=== PATIENT | male | born 1995 ===

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

== ENCOUNTER 2017-01-20 10:57 | Emergency (ER) | payer OTHER ==
[2017-01-20 11:19] VITALS: BP 131/81
--- NOTE | 2017-01-20 11:42 | UC ---
Skin Complaint HPI - HPI Summary HPI Summary: The patient comes in today for: 1. Sore on the left buttocks: Onset: 2 weeks. Palliative/provocative: Pressure makes it hurt more. No pressure helps. Quality: Sore Region: Left buttocks. Severity: 2/10 without touching. 7/10 with touching. Time: Constant. Associated symptoms: Drainage: None. Previous treatment: In the past, he has tried antibiotics. * - History of Current Complaint Chief Complaint: UCSkin Time Seen by Provider: 01/20/17 11:37 Stated Complaint: SOFT TISSUE COMPLAINT Hx Obtained From: Patient - Allergy/Home Medications Allergies/Adverse Reactions: Allergies Allergy/AdvReac Type Severity Reaction Status Date / Time No Known Allergies Allergy Verified 12/09/16 10:58 Review of Systems Constitutional: Negative Skin: Rash Eyes: Negative ENT: Negative Respiratory: Negative Cardiovascular: Negative Gastrointestinal: Negative Genitourinary: Negative All Other Systems Reviewed And Are Negative: Yes PMH/Surg Hx/FS Hx/Imm Hx Previously Healthy: No Endocrine History Of: Denies: Diabetes, Thyroid Disease, Hyperthyroidism, Hypothyroidism, Dyslipidemia Cardiovascular History Of: Denies: Cardiac Disorders, Hypertension, Pacemaker/ICD, Myocardial Infarction , Congestive Heart Failure, Atrial Fibrillation, Deep Vein Thrombosis, Bleeding Disorders Respiratory History Of: Reports: Asthma - as a child Denies: COPD, Bronchitis, Pneumonia, Pulmonary Embolism GI/ History Of: Denies: Gastroesophageal Reflux, Ulcer, Gastrointestinal Bleed, Gall Bladder Disease, Kidney Stones, Diverticulitis, Renal Disease, Urosepsis Neurological History Of: Denies: TIA, CVA, Dementia, Seizures, Migraine Psychological History Of: Denies: Anxiety, Depression, Bipolar Disorder, Schizophrenia, Post Traumatic Stress Disorder Cancer History Of: Denies: Lung Cancer, Colorectal Cancer, Breast Cancer, Prostate Cancer, Cervical Cancer Other History Of: Negative For: HIV, Hepatitis B, Hepatitis C, Anticoagulant Therapy - Surgical History Surgical History: None - Family History Known Family History: Negative: Cardiac Disease, Hypertension, Diabetes - Social History Occupation: Student Alcohol Use: None Substance Use Type: None Smoking Status (MU): Heavy Every Day Tobacco Smoker Type: Cigarettes Amount Used/How Often: 1/2 ppd Have You Smoked in the Last Year: Yes Household Exposure Type: Cigarettes - Immunization History Most Recent Influenza Vaccination: fall 2015 Vaccination Up to Date: Yes Physical Exam Triage Information Reviewed: Yes Appearance: Well-Appearing, No Pain Distress, Well-Nourished Vital Signs: Initial Vital Signs Pulse 64 01/20/17 11:07 Resp 18 01/20/17 11:07 BP 131/81 01/20/17 11:07 Pulse Ox 100 01/20/17 11:07 Vital Signs Reviewed: Yes Eyes: Positive: Conjunctiva Clear. Negative: Discharge ENT: Positive: Hearing grossly normal. Negative: Pharyngeal erythema, Nasal congestion, Nasal drainage, TM bulging, TM dull, TM red, Tonsillar swelling, Tonsillar exudate Dental: Negative: Gross Decay/Caries @, Dental Fracture @ Neck: Positive: Supple, Nontender, No Lymphadenopathy. Negative: Nuchal Rigidity Respiratory: Positive: Chest non-tender, Lungs clear, No respiratory distress, No accessory muscle use. Negative: Crackles, Wheezing Cardiovascular: Positive: RRR, Pulses Normal Abdomen Description: Positive: Nontender, No Organomegaly, Soft. Negative: Distended, Guarding Musculoskeletal: Positive: Strength Intact, ROM Intact, No Edema Neurological: Positive: Alert, Muscle Tone Normal Psychological: Positive: Age Appropriate Behavior, Consolable Skin: Positive: rashes - Left buttocks: There is some redness of the left buttocks, but it is diffuse. Palpation reveals a mass-like sensation about 3 cm in diameter. It was about 1 cm below the surface. There was no fluctuance. There was minimal tenderness to palpation. Course/Dx - Course Course Of Treatment: Patient was told that I suspect he has a cyst that is in the early stages of infection. And at this time I recommended hot compresses, and antibiotics and to be seen again in about 3 eays. - Differential Diagnoses - Skin Complaint Differential Diagnoses: Abscess, Cellulitis - Diagnoses Provider Diagnoses: Cellulitis. early abscess of the left buttocks. Discharge - Discharge Plan Condition: Stable Disposition: HOME Patient Education Materials: Cellulitis (ED), Abscess (ED) Forms: *School Release Referrals: No Primary Care Phys,NOPCP [Primary Care Provider] - 3 Days (Please see your primary care provider after 3 days. If you don't have one, you can come back to see us.)
== END 2017-01-20 12:15 | disposition home or self-care (01) ==
LOC: UCEAST 10:57
DX: L03.317 Cellulitis of buttock (principal); L02.31 Cutaneous abscess of buttock; F17.210 Nicotine dependence, cigarettes, uncomplicated
CPT/HCPCS: 99212; G0463

== ENCOUNTER 2017-03-10 10:41 | Emergency (ER) | payer OTHER ==
[2017-03-10 11:09] VITALS: BP 129/57
--- NOTE | 2017-03-10 12:36 | UC ---
I, Jeff,Triny, scribed for Caity Nunez MD on 03/10/17 at 1224 . Skin Complaint HPI - HPI Summary HPI Summary: This 21 y/o male presents to [facility] for rash and irritation around groin area since 2 days ago. Pt states started following shaving for the first time. No drainage. + pruritic. No abd pain. No nausea, vomiting. Irritation is not located over penis or testicles. Pt admits to shaving the area 2 days ago for the first time. Positive itchiness. Negative fever, chills, n/v, or SOB. Pt denies any PMHx. Nondrinker and nonsmoker. FHx is negative for HTN, DM, and cardiac dz. Pt is a high school student. Med list is reviewed and confirmed with pt. Plan of care involving cool soak, benadryl, and ointment is discussed with pt, and he is agreeable. - History of Current Complaint Chief Complaint: EDRashSkinAbscess Time Seen by Provider: 03/10/17 12:10 Stated Complaint: PERSONAL Hx Obtained From: Patient Onset/Duration: Sudden Onset, Still Present Skin Exposure Onset/Duration: Days Ago - 2 days ago Timing: Constant Location: Other - groin area Aggravating: Nothing Alleviating: Nothing, OTC Meds Associated Signs & Symptoms: Positive: Negative - Allergy/Home Medications Allergies/Adverse Reactions: Allergies Allergy/AdvReac Type Severity Reaction Status Date / Time No Known Allergies Allergy Verified 03/10/17 12:32 Home Medications: Home Medications NK [No Home Medications Reported] 03/10/17 [History Confirmed 03/10/17] Review of Systems Constitutional: Negative Skin: Other - itchiness and irritation over groin area Eyes: Negative ENT: Negative Respiratory: Negative Cardiovascular: Negative Gastrointestinal: Negative Genitourinary: Negative Motor: Negative Neurovascular: Negative Musculoskeletal: Negative Neurological: Negative Psychological: Negative All Other Systems Reviewed And Are Negative: Yes PMH/Surg Hx/FS Hx/Imm Hx Previously Healthy: Yes - Pt denies any PMHx Other History Of: Negative For: HIV, Hepatitis B, Hepatitis C, Anticoagulant Therapy - Surgical History Surgical History: None - Family History Known Family History: Negative: Cardiac Disease, Hypertension, Diabetes - Social History Occupation: Student Alcohol Use: None Substance Use Type: None Smoking Status (MU): Former Smoker Type: Cigarettes Amount Used/How Often: 1/2 ppd Have You Smoked in the Last Year: Yes Household Exposure Type: Cigarettes - Immunization History Most Recent Influenza Vaccination: fall 2015 Vaccination Up to Date: Yes Physical Exam Triage Information Reviewed: Yes Completion Of Physical Exam Limited Due To: Altered Mental Status Appearance: Well-Appearing, No Pain Distress, Well-Nourished Vital Signs: Initial Vital Signs Temp 98 F 03/10/17 11:06 Pulse 68 03/10/17 11:06 Resp 16 03/10/17 11:06 BP 129/57 03/10/17 11:06 Pulse Ox 100 03/10/17 11:06 Vital Signs Reviewed: Yes Eyes: Positive: Conjunctiva Clear ENT Exam: Normal ENT: Positive: Hearing grossly normal Neck: Positive: Supple, Nontender Respiratory: Positive: No respiratory distress Abdomen Description: Positive: Nontender, No Organomegaly, Soft Bowel Sounds: Positive: Present Musculoskeletal Exam: Normal Musculoskeletal: Positive: Strength Intact Neurological Exam: Normal Neurological: Positive: Alert Psychological Exam: Normal Skin: Positive: Other - Pt with inflammed follicles suprapubic area No inflammed, infected area. No tenderness to palp Course/Dx - Course Course Of Treatment: Pt with apparent inflammed follicles after shaving. reassurance. benadryl cream. cool soaks. d/w pt shaving with grain, using shaving cream - Diagnoses Provider Diagnoses: folliculitis Discharge - Discharge Plan Condition: Stable Disposition: HOME Referrals: No Primary Care Phys,NOPCP [Primary Care Provider] - Additional Instructions: - Apply cools soaks to your irritated area - Okay to apply Benadryl cream to the areas of irritation - When you shave, apply soap or shaving cream. Make sure to run the razor in the direction the hair grows and not against the direction - Avoid getting over heated -hot tubs, hot showers, exercises for 2-3 days Call your doctor or return with questions or concerns The documentation as recorded by the Jeff martinez Soohyun accurately reflects the service I personally performed and the decisions made by me, Caity Nunez MD.
== END 2017-03-10 12:30 | disposition home or self-care (01) ==
LOC: UCEAST 10:41
DX: L73.9 Follicular disorder, unspecified (principal)
CPT/HCPCS: 99211; G0463